=== PATIENT | female | born 1955 | race Two or more races ===

== ENCOUNTER 2024-07-15 21:59 | Emergency (ER) | payer SELFPAY ==
[~2024-07-15] VITALS: Ht 154.9 cm; Wt 59.9 kg
[2024-07-15] MEDS: ONDANSETRON ODT 4 MG TAB PO ONE (23:00)
[2024-07-15] MEDS: DONNATAL 5ml ORAL Elix (BELLADONNA ALK-PHENOBARB) PO ONE (23:00)
[2024-07-15 23:05] LABS: Urine Bacteria None Seen /hpf (None Seen)
[2024-07-15 23:23] LABS: Urine Blood Negative /uL (Negative); Urine Clarity Clear (Clear); Urine Color Colorless (Yellow); Urine Protein, UAD Negative (Negative); Urine Specific Gravity 1.004 (1.001-1.035); Urine Squamous Epithelial Cell None Seen /hpf (<5); Urine Urobilinogen Normal (Negative); Urine WBC < 1 /HPF (0-5); Urine pH 6.5 (5.0-9.0)
[2024-07-15 23:30] LABS: Basophils # (auto) 0 10 ^3/uL (0-0.2); Basophils % (auto) 0.4 % (0.0-2.0); Eosinophils # (auto) 0 10 ^3/uL (0-0.8); Eosinophils % (auto) 0.4 % (0.0-7.0); Hematocrit 43.7 % (36.0-46.0); Hemoglobin 14.5 g/dL (12.2-16.2); Lymphocytes # (auto) 1.3 10 ^3/uL (0.4-5.4); Lymphocytes % (auto) 21.8 % (10.0-50.0); Mean Corpuscular Hemoglobin 28.8 pg (28.0-32.0); Mean Corpuscular Hgb Conc. 33.2 g/dL (32.0-36.0); Mean Corpuscular Volume 86.6 fL (80.0-100.0); Monocytes # (auto) 0.3 10 ^3/uL (0-1.3); Monocytes % (auto) 5.8 % (0.0-12.0); Neutrophils # (auto) 4.1 10 ^3/uL (1.6-8.6); Neutrophils % (auto) 71.6 % (37.0-80.0); Nucleated Red Blood Cells % 0.1 %; Platelet Count (auto) 221 10^3/uL (140-450); Red Blood Cells 5.05 10^6/uL (4.0-5.20); White Blood Cell 5.7 10^3/uL (4.4-10.8)
--- NOTE | 2024-07-15 23:30 | DVH ---
CHEST RADIOGRAPH Indication: hi bp Technique: Single frontal view of the chest was obtained Comparison: None FINDINGS: Lines and Tubes: None Lungs: Clear Pleura: No effusion. No pneumothorax. Cardiomediastinal contours: Unremarkable Bones: Unremarkable IMPRESSION: Clear lungs.
[2024-07-15 23:46] LABS: Alanine Aminotransferase 86 U/L (7-40); Albumin 4.7 g/dL (3.2-4.8); Alkaline Phosphatase 36 U/L (46-116); Anion Gap 8 (5-15); Aspartate Aminotransferase 57 U/L (13-40); BUN/Creatinine Ratio 18.1 (10.0-20.0); Blood Urea Nitrogen 21 mg/dL (9-23); Calcium 10.4 mg/dL (8.7-10.4); Carbon Dioxide 26 mmol/L (20-31); Chloride 103 mmol/L (98-107); Glucose 111 mg/dL (74-106); Lipase 93 U/L (12-53); Potassium 4.4 mmol/L (3.5-5.1); Sodium 137 mmol/L (136-145); Total Protein 7.3 g/dL (5.7-8.2)
[2024-07-15 23:47] LABS: Bilirubin, Total 0.6 mg/dL (0.2-1.0)
[2024-07-16 01:51] VITALS: BP 153/61; PULSE 68; RESP 18; TEMP 98.7; O2SAT 97
[2024-07-16] MEDS: MAALOX PLUS or MAALOX 30 ML PO ONE (01:53)
[2024-07-16] MEDS: LIDOCAINE VISCOUS 2% 15ML UD PO ONE (01:54)
--- NOTE | 2024-07-16 02:07 | ED.PDOC ---
History of Present Illness HPI Comments 68-year-old female with a history of hypertension, dyslipidemia brought in by family complaining of elevated blood pressure today. Patient also notes headache, abdominal pain in the epigastric region, associated with bloating. Patient states she is visiting the area, has been walking a lot, and may have mi ssed a dose of her metoprolol. She denies any vision changes, dizziness or focal weakness. She has had nausea and vomiting. Chief Complaint: High Blood Pressure Time Seen by MD: 22:14 Allergies: Coded Allergies: NO KNOWN ALLERGIES (Unverified , 07/15/24) Home Meds Active Scripts Dicyclomine Hcl (BENTYL CAPSULE) 10 Mg Cp, 2 CAP PO Q6HP PRN, #30 CAP 11 Refills Prov:JAQUAN CATALAN MD 07/16/24 Ondansetron Odt 4MG Tab (ZOFRAN PO) 4 Mg Tb, 4 MG PO TID PRN, #30 TAB ODT TAB-DISSOLVE IN MOUTH, THEN SWALLOW Prov:JAQUAN CATALAN MD 07/16/24 Mode of Arrival: Ambulatory Past Medical History PAST MEDICAL HISTORY: High Lipids, HTN Surgical History: Cholecystectomy, , Hysterectomy UNDERWEAR CUTTER History: No Pertinent UNDERWEAR CUTTER History Family History Family History: Reviewed,noncontributory to illness Social History Smoker: Non-Smoker Alcohol: Denies ETOH Use Drugs: Denies Drug Use Lives In: Home All Other Systems: Reviewed and Negative (Comprehensive systems review obtained and negative except for what is stated in the HPI.) Physical Exam General Appearance: No Apparent Distress HEENT: Other (Pupils and face symmetric. Moist mucous membranes.) Neck: Full Range of Motion, Normal Inspection Respiratory: Lungs Clear, No Accessory Muscle Use, No Respiratory Distress, Normal Breath Sounds Cardiovascular: No Edema, No JVD, Regular Rate/Rhythm Breast Exam: Deferred Gastrointestinal: Non Tender, Soft Genitalia: Deferred Pelvic: Deferred Rectal: Deferred Extremities: Normal inspection, Normal range of motion, Non-tender, No pedal edema Neurologic: Alert (Oriented x4), Normal Affect, Normal Mood, Other (Ambulatory without difficulty) Cerebellar Function: NOT DONE Reflexes: NOT DONE Skin: Dry, Normal Color, Warm Lymphatic: NOT DONE Was a procedure done? Was a procedure done?: No Differential Dx Considerations may include: Accelerated hypertension, hypertensive urgency/emergency, mi, CHF, renal failure, enteritis, gastritis, viral syndrome, other infectious process such as UTI, among others. X-Ray, Labs, Meds, VS Vital Signs Date Time Temp Pulse Resp B/P (MAP) Pulse Ox O2 Delivery O2 Flow Rate FiO2 07/16/24 01:51 98.7 68 18 153/61 (91) 97 98.7 07/15/24 22:30 97.9 69 17 167/89 (115) 95 97.9 Lab Test 07/16/24 00:07 07/15/24 23:10 07/15/24 22:40 Range/Units Troponin I High Sensitivity 4 5 </=34 ng/L White Blood Count 5.7 4.4-10.8 10^3/uL Red Blood Count 5.05 4.0-5.20 10^6/uL Hemoglobin 14.5 12.2-16.2 g/dL Hematocrit 43.7 36.0-46.0 % Mean Corpuscular Volume 86.6 80.0-100.0 fL Mean Corpuscular Hemoglobin 28.8 28.0-32.0 pg Mean Corpuscular Hemoglobin Concent 33.2 32.0-36.0 g/dL Red Cell Distribution Width 14.0 11.8-14.3 % Platelet Count 221 140-450 10^3/uL Mean Platelet Volume 9.2 6.9-10.8 fL Neutrophils (%) (Auto) 71.6 37.0-80.0 % Lymphocytes (%) (Auto) 21.8 10.0-50.0 % Monocytes (%) (Auto) 5.8 0.0-12.0 % Eosinophils (%) (Auto) 0.4 0.0-7.0 % Basophils (%) (Auto) 0.4 0.0-2.0 % Neutrophils # (Auto) 4.1 1.6-8.6 10 ^3/uL Lymphocytes # (Auto) 1.3 0.4-5.4 10 ^3/uL Monocytes # (Auto) 0.3 0-1.3 10 ^3/uL Eosinophils # (Auto) 0 0-0.8 10 ^3/uL Basophils # (Auto) 0 0-0.2 10 ^3/uL Nucleated Red Blood Cells 0.1 % Sodium Level 137 136-145 mmol/L Potassium Level 4.4 3.5-5.1 mmol/L Chloride Level 103 98-107 mmol/L Carbon Dioxide Level 26 20-31 mmol/L Anion Gap 8 5-15 Blood Urea Nitrogen 21 9-23 mg/dL Creatinine 1.16 H 0.550-1.02 mg/dL Glomerular Filtration Rate Calc 51 >90 mL/min BUN/Creatinine Ratio 18.1 10.0-20.0 Serum Glucose 111 H 74-106 mg/dL Calcium Level 10.4 8.7-10.4 mg/dL Total Bilirubin 0.6 0.2-1.0 mg/dL Aspartate Amino Transferase (AST) 57 H 13-40 U/L Alanine Aminotransferase (ALT) 86 H 7-40 U/L Alkaline Phosphatase 36 L 46-116 U/L B-Type Natriuretic Peptide 40.83 0-100 pg/mL Total Protein 7.3 5.7-8.2 g/dL Albumin 4.7 3.2-4.8 g/dL Lipase 93 H 12-53 U/L Urine Color Colorless Yellow Urine Clarity Clear Clear Urine pH 6.5 5.0-9.0 Urine Specific [place] 1.004 1.001-1.035 Urine Protein Negative Negative Urine Ketones Negative Negative Urine Blood Negative Negative /uL Urine Nitrite Negative Negative Urine Bilirubin Negative Negative Urine Urobilinogen Normal Negative mg/dL Urine Leukocyte Esterase Negative Negative /uL Urine RBC None seen 0 - 4 /hpf Urine Microscopic WBC < 1 0-5 /HPF Urine Squamous Epithelial Cells None seen <5 /hpf Urine Bacteria None seen None Seen /hpf Urine Glucose Normal Normal mg/dL Current Medications Medications (Trade) Dose Ordered Sig/Karen Route Start Time Stop Time Status Last Admin Al Hydrox/Mg Hydrox/Simethicone (Maalox Plus) 30 ml ONCE ONCE PO 07/15/24 23:00 07/15/24 23:02 DC 07/16/24 01:53 Belladonna Alkaloids/ Phenobarbital ( Elixir) 10 ml ONCE ONCE PO 07/15/24 23:00 07/15/24 23:02 DC 07/15/24 23:00 Lidocaine HCl (Xylocaine 2% Viscous) 10 ml ONCE ONCE PO 07/15/24 23:00 07/15/24 23:02 DC 07/16/24 01:54 PROCEDURE(s): CXRP - CHEST PORTABLE REASON: hi bp ORDER NUMBER(s): [id number], ACCESSION NUMBER(s): [id number] CHEST RADIOGRAPH Indication: hi bp Technique: Single frontal view of the chest was obtained Comparison: None FINDINGS: Lines and Tubes: None Lungs: Clear Pleura: No effusion. No pneumothorax. Cardiomediastinal contours: Unremarkable Bones: Unremarkable IMPRESSION: Clear lungs. EDURE(s): ABPL - CT AB PEL WO CON-NO ORAL OR IV REASON: upper abd pain pancreatitis ORDER NUMBER(s): [id number], ACCESSION NUMBER(s): [id number] Exam: CT CT AB PEL WO CON-NO ORAL OR IV History: upper abd pain pancreatitis Comparison Study: None Technique: Multidetector spiral CT of the abdomen was performed from lung bases to pubic symphysis. Imaging was performed without IV contrast. Axial, coronal and sagittal multiplanar reformats were obtained from the axial data set by the technologist. Radiation Dose : 1. Abdomen/Pelvis: CTDIvol 5.4 mGy, DLP 279.55 mGy*cm. Findings: Evaluation of solid organs is limited due to lack of intravenous contrast use. Lung Bases: No acute or significant lung base finding. Normal heart size. No pleural or pericardial effusion. Liver: The liver is normal in size. There is diffuse hepatic steatosis. No focal lesions. Gallbladder and Biliary Tree: The gallbladder is surgically absent. Spleen: Unremarkable Pancreas: The pancreas is grossly normal in appearance. Adrenal Glands: Unremarkable Kidneys: Kidneys are grossly normal without calculi or hydronephrosis. Bladder: Grossly unremarkable for degree of distention. Bowel: The stomach is grossly normal in appearance. Small bowel and colon are normal in caliber and distribution. Diverticulosis coli. The appendix is normal. Ascites: Absent Lymphadenopathy: No mesenteric, retroperitoneal or periportal lymphadenopathy. Abdominal Wall and Mesentery: Unremarkable. Vasculature: The visualized abdominal aorta is normal in size and caliber. Atherosclerotic vascular calcifications. Evaluation of abdominal and pelvic vessels is limited due to lack of intravenous contrast. Pelvic Organs: Unremarkable. The uterus is surgically absent. Musculoskeletal: No aggressive focal bony lesions, acute fractures or dislocation. IMPRESSION: 1. No acute abdominal or pelvic findings. 2. Hepatic steatosis. 3. Diverticulosis coli. No evidence of acute diverticulitis. Radiation optimization: All CT scans at this facility use at least one of these dose optimization techniques: automated exposure control mA and/or kV adjustment per patient size (includes targeted exams where dose is matched to clinical indication) or iterative reconstruction. X-Ray, Labs, Meds, VS Comment 68-year-old female with a history of hypertension and dyslipidemia presenting with elevated blood pressure, headache and upset stomach Vitals remarkable for BP 167/89 Exam unremarkable Rhythm strip independently interpreted by me: Sinus rhythm, rate 69, no ectopy. Chest x-ray unremarkable CT abdomen and pelvis IMPRESSION: 1. No acute abdominal or pelvic findings. 2. Hepatic steatosis. 3. Diverticulosis coli. No evidence of acute diverticulitis. CBC unremarkable. CMP remarkable for creatinine 1.16, AST 57, ALT 86, alkaline phos 36. Lipase elevated at 93. UA normal Patient treated with the following in the ED: Zofran ODT 4 mg p.o., viscous lidocaine 10 mL, 10 mL, Maalox 10 mL p.o. On re-evaluation, patient states nausea and epigastric discomfort has improved. Vitals were stable. Blood pressure was 153/61 Plan was to hospitalize the patient for further evaluation of her abdominal pain and elevated lipase, which could indicate pancreatitis. Patient stated she did not want to be hospitalized, and would prefer to follow- up with her primary doctor in [place] when she returns home. She did agree to undergo abdominal CT to evaluate for findings of pancreatitis or biliary obstruction. CT results were provided for the patient. Patient stated she was feeling better on re-evaluation, and appears stable for discharge at this time. Patient advised to return to ER for persistent or worsening symptoms. Rx Zofran, Bentyl. Continue other medications as prescribed. Time of 1ST Reevaluation: 02:16 Reevaluation 1ST: Improved Patient Education/Counseling: Diagnosis, Treatment, Need For Follow Up Family Education/Counseling: No Family Present Departure 1 Departure Time of Disposition: 03:00 Impression: Primary Impression: Accelerated hypertension Additional Impressions: Elevated lipase Transaminitis Disposition: 01 HOME / SELF CARE / HOMELESS Condition: Stable Additional Instructions: Your blood tests were remarkable for mildly elevated liver function tests and lipase (a test for pancreatic inflammation.) Your chest x-ray was unremarkable. Your CT scan was unremarkable. The report is enclosed below. I have prescribed medication for your symptoms. Continue taking your blood pressure medication as directed. Follow-up with your primary doctor as soon as possible. Return to ER for persistent or worsening symptoms. [address] [address] Ph: [phone] DIAGNOSTIC IMAGING Diagnostic Imaging Report : [id number] Signed PATIENT: JUAN MANUEL GALLOWAY ACCT: [id number] UNIT: [id number] : 1955 LOC: ER ROOM / BED: / AGE / SEX: 68 / F ADM STATUS: REG ER SERVICE [id number] ORDERING PHYSICIAN: JAQUAN CATALAN MD PROCEDURE(s): ABPL - CT AB PEL WO CON-NO ORAL OR IV REASON: upper abd pain pancreatitis ORDER NUMBER(s): [id number], ACCESSION NUMBER(s): [id number] Exam: CT CT AB PEL WO CON-NO ORAL OR IV History: upper abd pain pancreatitis Comparison Study: None Technique: Multidetector spiral CT of the abdomen was performed from lung bases to pubic symphysis. Imaging was performed without IV contrast. Axial, coronal and sagittal multiplanar reformats were obtained from the axial data set by the technologist. Radiation Dose : 1. Abdomen/Pelvis: CTDIvol 5.4 mGy, DLP 279.55 mGy*cm. Findings: Evaluation of solid organs is limited due to lack of intravenous contrast use. Lung Bases: No acute or significant lung base finding. Normal heart size. No pleural or pericardial effusion. Liver: The liver is normal in size. There is diffuse hepatic steatosis. No focal lesions. Gallbladder and Biliary Tree: The gallbladder is surgically absent. Spleen: Unremarkable Pancreas: The pancreas is grossly normal in appearance. Adrenal Glands: Unremarkable Kidneys: Kidneys are grossly normal without calculi or hydronephrosis. Bladder: Grossly unremarkable for degree of distention. Bowel: The stomach is grossly normal in appearance. Small bowel and colon are normal in caliber and distribution. Diverticulosis coli. The appendix is normal. Ascites: Absent Lymphadenopathy: No mesenteric, retroperitoneal or periportal lymphadenopathy. Abdominal Wall and Mesentery: Unremarkable. Vasculature: The visualized abdominal aorta is normal in size and caliber. Atherosclerotic vascular calcifications. Evaluation of abdominal and pelvic vessels is limited due to lack of intravenous contrast. Pelvic Organs: Unremarkable. The uterus is surgically absent. Musculoskeletal: No aggressive focal bony lesions, acute fractures or dislocation. IMPRESSION: 1. No acute abdominal or pelvic findings. 2. Hepatic steatosis. 3. Diverticulosis coli. No evidence of acute diverticulitis. Radiation optimization: All CT scans at this facility use at least one of these dose optimization techniques: automated exposure control mA and/or kV adjustment per patient size (includes targeted exams where dose is matched to clinical indication) or iterative reconstruction. ATED BY: ARNIE ALCANTARA MD DICTATED DATE/TIME: 07/16/24 0251 e-Prescriptions Dicyclomine Hcl (BENTYL CAPSULE) 10 Mg Cp 2 CAP PO Q6HP PRN, #30 CAP 11 Refills Prov: JAQUAN CATALAN MD 07/16/24 Ondansetron Odt 4MG Tab (ZOFRAN PO) 4 Mg Tb 4 MG PO TID PRN, #30 TAB ODT TAB-DISSOLVE IN MOUTH, THEN SWALLOW Prov: JAQUAN CATALAN MD 07/16/24 Discharged With: Relative Critical Care Note Critical Care Time?: No Stability Stability form required: No Heart Score Heart Score: Heart Score Response (Comments) Value History N/A 0 EKG N/A 0 Age N/A 0 Risk Factors N/A 0 Troponin N/A 0 Total 0 JAQUAN CATALAN MD Jul 16, 2024 02:07
[2024-07-16] MEDS ORDERED: DICY10CA PO (02:23)
[2024-07-16] MEDS ORDERED: ZOFR4T PO (02:23)
--- NOTE | 2024-07-16 02:53 | DVH ---
Exam: CT CT AB PEL WO CON-NO ORAL OR IV History: upper abd pain pancreatitis Comparison Study: None Technique: Multidetector spiral CT of the abdomen was performed from lung bases to pubic symphysis. I maging was performed without IV contrast. Axial, coronal and sagittal multiplanar reformats were obta ined from the axial data set by the technologist. Radiation Dose : 1. Abdomen/Pelvis: CTDIvol 5.4 mGy, DLP 279.55 mGy*cm. Findings: Evaluation of solid organs is limited due to lack of intravenous contrast use. Lung Bases: No acute or significant lung base finding. Normal heart size. No pleural or pericardial effusion. Liver: The liver is normal in size. There is diffuse hepatic steatosis. No focal lesions. Gallbladder and Biliary Tree: The gallbladder is surgically absent. Spleen: Unremarkable Pancreas: The pancreas is grossly normal in appearance. Adrenal Glands: Unremarkable Kidneys: Kidneys are grossly normal without calculi or hydronephrosis. Bladder: Grossly unremarkable for degree of distention. Bowel: The stomach is grossly normal in appearance. Small bowel and colon are normal in caliber and d istribution. Diverticulosis coli. The appendix is normal. Ascites: Absent Lymphadenopathy: No mesenteric, retroperitoneal or periportal lymphadenopathy. Abdominal Wall and Mesentery: Unremarkable. Vasculature: The visualized abdominal aorta is normal in size and caliber. Atherosclerotic vascular c alcifications. Evaluation of abdominal and pelvic vessels is limited due to lack of intravenous cont rast. Pelvic Organs: Unremarkable. The uterus is surgically absent. Musculoskeletal: No aggressive focal bony lesions, acute fractures or dislocation. IMPRESSION: 1. No acute abdominal or pelvic findings. 2. Hepatic steatosis. 3. Diverticulosis coli. No evidence of acute diverticulitis. Radiation optimization: All CT scans at this facility use at least one of these dose optimization roberto hniques: automated exposure control mA and/or kV adjustment per patient size (includes targeted exam s where dose is matched to clinical indication) or iterative reconstruction.
== END 2024-07-16 03:27 | disposition home or self-care (01) ==
LOC: ER 21:59
DX: I10 Essential (primary) hypertension (principal); R74.01 Elevation of levels of liver transaminase levels; E78.5 Hyperlipidemia, unspecified; Z79.899 Other long term (current) drug therapy; Z90.49 Acquired absence of other specified parts of digestive tract; Z90.710 Acquired absence of both cervix and uterus
CPT/HCPCS: 36415; 71045; 74176; 80053; 81001; 83690; 83880; 84484; 85025